=== PATIENT | female | born 2000 ===

== ENCOUNTER → 2021-06-16 | Outpatient (REF) | LOC: M EMPSKH 07:16 | PROVIDERS: ATTEND Family Medicine | DX: Z11.52 Encounter for screening for COVID-19 (principal) ==

== ENCOUNTER 2021-08-15 23:39 | Emergency (ER) ==
[~2021-08-15] VITALS: Ht 162.6 cm; Wt 85.8 kg
[2021-08-15 23:40] VITALS: BP 137/76
--- NOTE | 2021-08-16 06:32 | REPVR ---
PROCEDURE INFORMATION: Exam: XR Nasal Bones Exam date and time: 08/16/2021 12:28 AM Age: 21 years old Clinical indication: Nose pain; Additional info: Hit in nose TECHNIQUE: Imaging protocol: XR of the nasal bones. Views: Minimum of 3 views COMPARISON: No relevant prior studies available. FINDINGS: Sinuses: Well aerated. No opacification. Bones/joints: Nondisplaced nondepressed nasal bone fractures. No significant angulation deformity. Bones are otherwise intact. Soft tissues: Unremarkable. IMPRESSION: Nondisplaced nondepressed nasal bone fractures. Electronically signed by: Richie Montelongo On 08/16/2021 06:31:32 AM
== END 2021-08-16 02:52 | disposition left against medical advice (07) ==
LOC: M ED 23:39
DX: Z53.21 Procedure and treatment not carried out due to patient leaving prior to being seen by health care provider (principal)

== ENCOUNTER → 2021-08-16 | Outpatient (CLI) | payer BC | LOC: M WUC 12:12 | PROVIDERS: ATTEND Physician Assistant | DX: S00.33XA Contusion of nose, initial encounter (principal); W18.30XA Fall on same level, unspecified, initial encounter; Y92.009 Unspecified place in unspecified non-institutional (private) residence as the place of occurrence of the external cause; Z53.8 Procedure and treatment not carried out for other reasons ==